=== PATIENT | female | born 1955 | race African-American/Black ===

== ENCOUNTER 2019-04-12 03:31 | Emergency (ER) | payer SELFPAY ==
[~2019-04-12] VITALS: Ht 165.1 cm; Wt 55.0 kg
[2019-04-12 03:58] LABS: BASOPHILS % 1.3 % (0.0-2.0); EOSINOPHILS % 1.6 % (0.0-5.0); HEMATOCRIT. 41.3 % (36.0-48.0); HEMOGLOBIN. 13.7 g/dL (12.0-16.0); LYMPHOCYTES % 59.1 % (20.0-50.0); MEAN CORPUSCULAR HEMOGLOBIN 30.5 pg (28.0-32.0); MEAN CORPUSCULAR VOLUME 91.8 fL (81.0-99.0); MEAN PLATELET VOLUME 7.7 fl (7.4-10.4); MONOCYTES % 9.2 % (2.0-8.0); NEUTROPHILS % 28.8 % (40.0-76.0); PLATELET 218 x1000/uL (130-400); RED CELL DISTRIBUTION WIDTH 14.2 % (11.6-14.6)
[2019-04-12] MEDS ORDERED: NITROGLYCERIN 0.4MG TABLET SL SL ONE (04:00)
[2019-04-12 04:04] LABS: CHLORIDE 109 mEq/L (98-107)
[2019-04-12 05:20] VITALS: BP 177/102
== END 2019-04-12 05:22 | disposition home or self-care (01) ==
LOC: ER 03:31
DX: J43.8 Other emphysema (principal)
CPT/HCPCS: 36415; 71045; 83880; 84484; 93005; 99291